=== PATIENT | female | born 1970 | race Caucasian/White ===

== ENCOUNTER 2017-09-17 20:36 | Emergency (ER) | payer OTHER ==
[2017-09-17 21:09] VITALS: BP 126/73; PULSE 76; TEMP 98.6; BMI 21.8
--- NOTE | 2017-09-17 21:45 | PDOC ---
History of Present Illness - General History Source: Patient Exam Limitations: No Limitations - History of Present Illness Initial Comments: 09/17/17 22:01 The patient is a 46 year old female with no reported past medical history presents to the hospital complaining of pain since the summer. The patient reports non-radiating pain localize to the left lower rib cage.The patient reports her primary doctor told her she has inflamed soft bone along the margin of the ribs. The patient reports she was awoken from her sleep last night due to the pain causing her to seek care. The patient states she heard a gurgling noise over the painful area for about 40 minutes. The patient reports she has a streak of numbness below the jawline on her neck, and sometimes she feels painful bumps. Patient denies fever, chills, diaphoresis, dysphasia, nausea, vomiting, diarrhea , constipation, hematochezia, dysuria, hematuria, flank pain or back pain. The patient denies, sore throat, SOB chest pain, dyspnea, cough, past injuries or recent trauma. Social History: The patient reports she quit heavy smoking 20 years ago and she does one or 2 a day now. The patient denies any use of alcohol. Allergies: Gluten, fexofenadine, and pseudoephedrine. <Amy Gotti - Last Filed: 09/17/17 22:02> <Chantel Bailey - Last Filed: 09/18/17 01:23> - General Chief Complaint: Pain Stated Complaint: PAIN LEFT LOWER RIB CAGE Time Seen by Provider: 09/17/17 20:38 Past History <Amy Gotti - Last Filed: 09/17/17 22:02> - Past Medical History COPD: No Other medical history: DENIES - Suicide/Smoking/Psychosocial Hx Smoking History: Current some day smoker Have you smoked in the past 12 months: No Number of Cigarettes Smoked Daily: 1 Information on smoking cessation initiated: Yes 'Breaking Loose' booklet given: 09/16/17 Hx Alcohol Use: No Drug/Substance Use Hx: No Substance Use Type: None <Chantel Bailey - Last Filed: 09/18/17 01:23> - Past Medical History Allergies/Adverse Reactions: Allergies Allergy/AdvReac Type Severity Reaction Status Date / Time gluten Allergy Severe Difficulty Verified 09/17/17 20:39 Breathing fexofenadine [From Jyoti-D] Allergy Intermediate Difficulty Verified 09/17/17 20:39 Breathing pseudoephedrine Allergy Intermediate Difficulty Verified 09/17/17 20:39 [From Jyoti-D] Breathing Home Medications: Ambulatory Orders Diclofenac Sodium [Voltaren -] 75 mg PO BID PRN #14 tablet. 09/17/17 Review of Systems - Review of Systems Able to Perform ROS?: Yes Comments:: 09/17/17 22:01 GENERAL/CONSTITUTIONAL: No fever or chills. No weakness. HEAD, EYES, EARS, NOSE AND THROAT: No change in vision. No ear pain or discharge. No sore throat. CARDIOVASCULAR:. No chest pain or shortness of breath. RESPIRATORY: No cough, wheezing, or hemoptysis. GASTROINTESTINAL: No nausea, vomiting, diarrhea or constipation. GENITOURINARY: No dysuria, frequency, or change in urination. MUSCULOSKELETAL: (+) left lower chest wall pain and neck pain. No joint or muscle swelling or pain. or back pain. SKIN: No rash NEUROLOGIC: No headache, vertigo, loss of consciousness, or change in strength/ sensation. ENDOCRINE: No increased thirst. No abnormal weight change. HEMATOLOGIC/LYMPHATIC: No anemia, easy bleeding, or history of blood clots. ALLERGIC/IMMUNOLOGIC: No hives or skin allergy. <Amy Gotti - Last Filed: 09/17/17 22:02> *Physical Exam - Vital Signs Last Vital Signs Temp Pulse Resp BP Pulse Ox 98.6 F 76 18 126/73 100 09/17/17 20:38 09/17/17 20:38 09/17/17 20:38 09/17/17 20:38 09/17/17 20:38 - Physical Exam Comments: 09/17/17 22:02 GENERAL: Awake, alert, and fully oriented, in no acute distress HEAD: No signs of trauma HENT: (+) bilateral moderatly enalrged anterior cervical lymp nodes and Pharynx normal EYES: PERRLA, EOMI, sclera anicteric, conjunctiva clear ENT: Auricles normal inspection, hearing grossly normal, nares patent, oropharynx clear without exudates. Moist mucosa NECK: Normal ROM, supple, no lymphadenopathy, JVD. LUNGS: Breath sounds equal, clear to auscultation bilaterally. No wheezes, and no crackles CHEST WALL: (+) Tenderness of the left costal margin at the mid cervical line extends to the anterior axillary line without masses or step offs. HEART: Regular rate and rhythm, normal S1 and S2, no murmurs, rubs or gallops ABDOMEN: Soft, nontender, normoactive bowel sounds. No guarding, no rebound. No masses EXTREMITIES: Normal range of motion, no edema. No clubbing or cyanosis. No cords, erythema, or tenderness NEUROLOGICAL: Cranial nerves II through XII grossly intact. Normal speech, normal gait SKIN: Warm, Dry, normal turgor, no rashes or lesions noted. <Amy Gotti - Last Filed: 09/17/17 22:02> - Vital Signs Last Vital Signs Temp Pulse Resp BP Pulse Ox 98.6 F 76 18 126/73 100 09/17/17 20:38 09/17/17 20:38 09/17/17 20:38 09/17/17 20:38 09/17/17 20:38 <Chantel Bailey - Last Filed: 09/18/17 01:23> Medical Decision Making - Medical Decision Making Documentation has been prepared under my direction and personally reviewed by me in its entirety. I attest that this documented accurately reflects all work, treatment, procedures and medical decision making performed by me. As noted above, this 46-year-old woman, smoker with no previous medical issues presents with a several month history of left costal margin pain/tenderness. No history of trauma or overuse. She had been seen in urgent care a few months ago with diagnosis of costochondritis being made. Patient presents tonight because she was awakened from a sound sleep last night; no shortness of breath/ cough/fever or other associated symptoms. She has no abdominal pain or nausea / change in bowel movements. Exam as noted. Besides the obvious tenderness of the left costal margin, neck exam revealed mildly tender anterior cervical lymphadenopathy that appeared to be bilateral. No other obvious abnormalities seen on exam. Especially since patient is a chronic smoker, chest x-ray and left rib series performed to evaluate for occult mass/effusion/fracture. No evidence of acute pathologic process seen on chest x-ray left rib series. Results discussed with the patient. Although the patient tends not to take medications, she has no contraindications to nonsteroidal anti-inflammatory medications. Prescription for diclofenac 75 mg twice a day as needed will be sent to her pharmacy. Meanwhile, the patient should follow-up with her general medical doctor to follow up her intermittent left-sided neck swelling and her left chest wall tenderness. <Chantel Bailey - Last Filed: 09/18/17 01:23> *DC/Admit/Observation/Transfer - Attestations Scribe Attestion: 09/17/17 22:02 Documentation prepared by Amy Gotti, acting as diagnostic medical sonographer for Chantel Bailey MD. <Amy Gotti - Last Filed: 09/17/17 22:02> <Chantel Bailey - Last Filed: 09/18/17 01:23> Diagnosis at time of Disposition: Costochondritis - Discharge Dispostion Disposition: HOME Condition at time of disposition: Stable - Prescriptions Prescriptions: Diclofenac Sodium [Voltaren -] 75 mg PO BID PRN #14 tablet.dr GARLAND Reason: Pain - Patient Instructions Printed Discharge Instructions: Costochondritis Additional Instructions: Avoid strenuous activity involving upper body for the next week Diclofenac 75 mg twice a day as needed for pain (take with food) Follow-up with your primary medical doctor within the next 5-7 days Return to ER if you have severe, persistent pain or experience shortness of breath/cough/fever
== END 2017-09-17 23:10 | disposition home or self-care (01) ==
LOC: FER 20:36
DX: M94.0 Chondrocostal junction syndrome [Tietze] (principal); F17.210 Nicotine dependence, cigarettes, uncomplicated
CPT/HCPCS: 71046-TC-FY; 71101-TC-FY; 84703; 99282-25